=== PATIENT | male | born 1995 | race Caucasian/White ===

== ENCOUNTER 2020-02-13 20:16 | Emergency (ER) | payer OTHER ==
[~2020-02-13] VITALS: Ht 160 cm; Wt 75.0 kg
[2020-02-13 21:43] VITALS: BP 134/61
--- NOTE | 2020-02-13 22:38 | REP ---
Clinical: Chest pain . Comparison: None . Technique: PA and lateral. Findings: The mediastinum and cardiac silhouette are normal. The lung cortes are clear and without acute consolidation, effusion, or pneumothorax. The skeletal structures are intact and normal. Impression: 1. No acute cardiopulmonary process. Electronically Signed by Allen Arauz MD 02/13/2020 10:29 P
--- NOTE | 2020-02-14 09:04 | ECGEPIP ---
[facility] - ED Test Date: 2020-02-13 Pat Name: EDD BUSTOS Department: Room: - Gender: Male [employer]: : 1995 Requested By: ROM Oscar Order Number: [id number] Reading MD: Barbara Maurer Measurements Intervals [place] Rate: 54 P: 57 MS: 202 QRS: 50 QRSD: 90 T: 22 QT: 389 QTc: 370 Interpretive Statements SINUS BRADYCARDIA No prior Electronically Signed on 02-14-2020 9:04:30 EDT by Barbara Maurer
== END 2020-02-13 21:45 | disposition home or self-care (01) ==
LOC: M ED 20:16
DX: M94.0 Chondrocostal junction syndrome [Tietze] (principal); R00.1 Bradycardia, unspecified